=== PATIENT | female | born 1980 | race Caucasian/White ===

== ENCOUNTER 2017-12-08 10:02 | Inpatient (IN) | payer MEDICAID ==
[2017-12-08 12:28] LABS: ADD UMIC NO; UR ASCORBIC ACID NEGATIVE (NEGATIVE); UR BACTERIA FEW /HPF (NONE SEEN); UR BILIRUBIN (Dip) NEGATIVE (NEGATIVE); UR BLOOD (Dip) NEGATIVE (NEGATIVE); UR CLARITY SLIGHTLY CLOUDY (CLEAR); UR COLOR YELLOW (YELLOW); UR GLUCOSE (Dip) NEGATIVE (NEGATIVE); UR KETONES (Dip) NEGATIVE (NEGATIVE); UR LEUKOCYTE ESTERASE (Dip) NEGATIVE Leu/ul (NEGATIVE); UR MUCUS FEW /HPF (NONE SEEN); UR NITRITE (Dip) NEGATIVE (NEGATIVE); UR RBC 1 /HPF (0-5); UR SQUAMOUS EPITHELIAL CELL FEW /HPF (FEW); UR TOTAL PROTEIN (Dip) NEGATIVE (NEGATIVE); UR UROBILINOGEN (Dip) NEGATIVE (NEGATIVE); UR WBC 6 /HPF (0-5)
[2017-12-08] MEDS ORDERED: CARBOPROST 250 MCG INJ IM (13:30)
[2017-12-08] MEDS ORDERED: OXYTOCIN 30 UNITS/LR 500 ML IV (13:30)
[2017-12-08] MEDS ORDERED: LIDOCAINE 1% (MPF) 30 ML INJ INJ (13:30)
[2017-12-08] MEDS ORDERED: METHYLERGONOVINE 0.2 MG INJ IM (13:30)
[2017-12-08] MEDS ORDERED: MISOPROSTOL 200 MCG TAB PR (13:30)
[2017-12-08] MEDS ORDERED: BUTORPHANOL 1 MG INJ IV (13:30)
[2017-12-08 15:48] LABS: ADD MAN DIFF? NO
[2017-12-08 15:53] LABS: BASOPHILS % 0.5 % (0.0-2.0); EOSINOPHILS % 0.1 % (0.0-7.0); HEMOGLOBIN 12.1 g/dl (12.0-16.0); LYMPHOCYTES # 1.9 10^3/ul (0.8-2.9); LYMPHOCYTES % 24.1 % (15.0-51.0); MEAN CORPUSCULAR HEMOGLOBIN 31.3 pg (29.0-33.0); MEAN CORPUSCULAR HGB CONC 33.6 g/dl (32.0-37.0); MEAN CORPUSCULAR VOLUME 93.3 fl (82.0-101.0); MEAN PLATELET VOLUME 10.8 fl (7.4-10.4); MONOCYTE # 0.5 10^3/ul (0.3-0.9); MONOCYTES % 6.5 % (0.0-11.0); NEUTROPHIL # 5.3 10^3/ul (1.6-7.5); NEUTROPHILS % 68.3 % (39.0-77.0); PLATELET COUNT 147 10^3/UL (140-415); RED BLOOD COUNT 3.86 10^6/ul (4.20-5.40); RED CELL DISTRIBUTION WIDTH 13.7 % (11.5-14.5)
[2017-12-08 15:53] LABS: WHITE BLOOD COUNT 7.8 10^3/ul (4.8-10.8)
[2017-12-08] MEDS: LACTATED RINGER'S 1,000 ML IV* (16:02)
[2017-12-08 16:10] LABS: INR 0.93; PARTIAL THROMBOPLASTIN TIME 24.9 Sec (25.0-35.0); PROTIME 12.5 Sec (11.9-14.9)
[2017-12-08 16:37] LABS: HEPATITIS B SURFACE ANTIGEN NEGATIVE (NEGATIVE)
[2017-12-08] MEDS: AMPICILLIN 2 GM/NS (PMX) 100 ML IVPB (17:17)
[2017-12-08] MEDS: DINOPROSTONE 10 MG VAG SUPP VAG (18:42)
[2017-12-08 19:55] LABS: RAPID PLASMA REAGIN NONREACTIVE (NR)
[2017-12-08 21:19] LABS: ALANINE AMINOTRANSFERASE 17 IU/L (13-69); ALBUMIN 3.3 g/dl (3.3-4.9); ALBUMIN/GLOBULIN RATIO 1.03; ALKALINE PHOSPHATASE 178 IU/L (42-121); ANION GAP 11 (8-16); ASPARTATE AMINO TRANSFERASE 22 IU/L (15-46); BILIRUBIN,INDIRECT 0.1 mg/dl (0-1.1); BILIRUBIN,TOTAL 0.1 mg/dl (0.2-1.3); BLOOD UREA NITROGEN 9 mg/dl (7-20); CALCIUM 8.7 mg/dl (8.4-10.2); CARBON DIOXIDE 22 mmol/L (21-31); CHLORIDE 109 mmol/L (97-110); CREATININE 0.46 mg/dl (0.44-1.00); GLUCOSE 107 mg/dl (70-220); POTASSIUM 4.1 mmol/L (3.5-5.1); SODIUM 138 mmol/L (135-144); TOTAL PROTEIN 6.5 g/dl (6.1-8.1); URIC ACID 4.1 mg/dl (3.1-7.9)
[2017-12-08] MEDS: AMPICILLIN 1 GM/NS (PMX) 50 ML IVPB (21:24)
[2017-12-08] MEDS: BUTORPHANOL 2 MG INJ IV (22:42)
[2017-12-09] MEDS: AMPICILLIN 1 GM/NS (PMX) 50 ML IVPB ×4 (01:25→13:14)
[2017-12-09] MEDS: LACTATED RINGER'S 1,000 ML IV* ×4 (04:08→18:41)
[2017-12-09] MEDS ORDERED: FENTAnyl 2MCG/ML-ROPIV 0.2% 100 ML (04:50)
[2017-12-09] MEDS ORDERED: ONDANSETRON 4 MG INJ IV (05:00)
[2017-12-09] MEDS ORDERED: FENTAnyl 2MCG/ML-ROPIV 0.2% 100 ML BAG EPI (05:00)
[2017-12-09] MEDS ORDERED: DIPHENHYDRAMINE 50 MG INJ IV (05:00)
[2017-12-09] MEDS ORDERED: NALOXONE (0.4 MG/ML) INJ IV (05:00)
[2017-12-09] MEDS ORDERED: TERBUTALINE 1 MG/ML INJ SC (10:00)
[2017-12-09] MEDS: TERBUTALINE 1 MG/ML INJ SC (10:40)
[2017-12-09] MEDS: MINERAL OIL LIGHT 10 ML VIAL TOP (14:25)
[2017-12-09] MEDS: OXYTOCIN 30 UNITS/LR 500 ML IV ×2 (14:59→15:29)
[2017-12-09] MEDS: BUTORPHANOL 2 MG INJ IV (15:24)
[2017-12-09] MEDS ORDERED: METHYLERGONOVINE 0.2 MG INJ IM (18:00)
[2017-12-09] MEDS ORDERED: OXYTOCIN 30 UNITS/LR 500 ML IV (18:00)
[2017-12-09] MEDS ORDERED: ZOLPIDEM 5 MG TAB PO (18:00)
[2017-12-09] MEDS ORDERED: CARBOPROST 250 MCG INJ IM (18:00)
[2017-12-09] MEDS ORDERED: MISOPROSTOL 200 MCG TAB PR (18:00)
[2017-12-09] MEDS: IBUPROFEN 600 MG TAB PO ×2 (18:32→23:28)
[2017-12-09] MEDS: LANOLIN 7 GM TUBE TOP (18:32)
[2017-12-09] MEDS: WITCH HAZEL/GLYCERIN PAD PR (18:32)
[2017-12-09] MEDS: CEPHALEXIN 500 MG CAP PO ×2 (18:32→23:28)
[2017-12-09] MEDS: BENZOCAINE 20% 56 ML SPRAY TOP (18:33)
[2017-12-09] MEDS: DIBUCAINE 1% 30 GM OINT PR (19:46)
[2017-12-09] MEDS: MAGNESIUM HYDROXIDE 30ML CUP PO ×2 (21:00→21:16)
[2017-12-09] MEDS: SENNA/DOCUSATE NA (8.6MG/50MG) TAB PO ×2 (21:00→21:16)
[2017-12-10] MEDS: HYDROCODONE/APAP (5/325) TAB PO ×4 (01:04→21:48)
[2017-12-10] MEDS: LACTATED RINGER'S 1,000 ML IV* ×3 (03:44→23:38)
[2017-12-10] MEDS: IBUPROFEN 600 MG TAB PO ×3 (05:37→17:47)
[2017-12-10] MEDS: CEPHALEXIN 500 MG CAP PO ×3 (05:37→17:47)
[2017-12-10 08:03] LABS: ADD MAN DIFF? NO
[2017-12-10 08:06] LABS: WHITE BLOOD COUNT 16.2 10^3/ul (4.8-10.8)
[2017-12-10 08:06] LABS: BASOPHIL # 0.1 10^3/ul (0.0-0.1); BASOPHILS % 0.3 % (0.0-2.0); EOSINOPHILS % 0.2 % (0.0-7.0); HEMATOCRIT 33.4 % (37.0-47.0); HEMOGLOBIN 11.2 g/dl (12.0-16.0); LYMPHOCYTES # 2.7 10^3/ul (0.8-2.9); LYMPHOCYTES % 16.7 % (15.0-51.0); MEAN CORPUSCULAR HEMOGLOBIN 31.7 pg (29.0-33.0); MEAN CORPUSCULAR HGB CONC 33.5 g/dl (32.0-37.0); MEAN CORPUSCULAR VOLUME 94.6 fl (82.0-101.0); MEAN PLATELET VOLUME 10.4 fl (7.4-10.4); MONOCYTE # 0.9 10^3/ul (0.3-0.9); MONOCYTES % 5.7 % (0.0-11.0); NEUTROPHIL # 12.4 10^3/ul (1.6-7.5); NEUTROPHILS % 76.7 % (39.0-77.0); PLATELET COUNT 150 10^3/UL (140-415); RED BLOOD COUNT 3.53 10^6/ul (4.20-5.40); RED CELL DISTRIBUTION WIDTH 14.2 % (11.5-14.5)
[2017-12-10] MEDS: SENNA/DOCUSATE NA (8.6MG/50MG) TAB PO ×2 (08:14→21:13)
[2017-12-10] MEDS: MAGNESIUM HYDROXIDE 30ML CUP PO ×2 (08:14→21:13)
[2017-12-11] MEDS: IBUPROFEN 600 MG TAB PO ×4 (00:41→18:10)
[2017-12-11] MEDS: CEPHALEXIN 500 MG CAP PO ×4 (00:42→18:10)
[2017-12-11] MEDS: DIBUCAINE 1% 30 GM OINT PR (04:00)
[2017-12-11] MEDS: WITCH HAZEL/GLYCERIN PAD PR (04:00)
[2017-12-11] MEDS: BENZOCAINE 20% 56 ML SPRAY TOP (04:00)
[2017-12-11] MEDS: LANOLIN 7 GM TUBE TOP (05:50)
[2017-12-11] MEDS: LACTATED RINGER'S 1,000 ML IV* ×2 (06:19→09:35)
[2017-12-11] MEDS: HYDROCODONE/APAP (5/325) TAB PO (08:42)
[2017-12-11] MEDS: MAGNESIUM HYDROXIDE 30ML CUP PO (08:42)
[2017-12-11] MEDS: SENNA/DOCUSATE NA (8.6MG/50MG) TAB PO (08:42)
[2017-12-11] MEDS: VARICELLA VACCINE LIVE/PF 1,350 UNIT/0.5 ML ML SC* (09:00)
[2017-12-11] MEDS: MEASLES,MUMPS,RUBELLA VACCINE INJ SC* (09:00)
[2017-12-11] MEDS: DIPHTH/TET/ACEL PERTUSS (ADULT) 0.5 ML VIAL IM* (09:00)
[2017-12-11 09:45] LABS: ADD MAN DIFF? NO
[2017-12-11 09:56] LABS: BASOPHIL # 0.1 10^3/ul (0.0-0.1); BASOPHILS % 0.4 % (0.0-2.0); EOSINOPHILS # 0.1 10^3/ul (0.0-0.5); EOSINOPHILS % 0.8 % (0.0-7.0); HEMATOCRIT 31.9 % (37.0-47.0); HEMOGLOBIN 10.7 g/dl (12.0-16.0); LYMPHOCYTES # 2.7 10^3/ul (0.8-2.9); LYMPHOCYTES % 18.9 % (15.0-51.0); MEAN CORPUSCULAR HEMOGLOBIN 31.5 pg (29.0-33.0); MEAN CORPUSCULAR HGB CONC 33.5 g/dl (32.0-37.0); MEAN CORPUSCULAR VOLUME 93.8 fl (82.0-101.0); MEAN PLATELET VOLUME 10.5 fl (7.4-10.4); MONOCYTE # 0.8 10^3/ul (0.3-0.9); MONOCYTES % 5.5 % (0.0-11.0); NEUTROPHIL # 10.5 10^3/ul (1.6-7.5); NEUTROPHILS % 73.8 % (39.0-77.0); PLATELET COUNT 187 10^3/UL (140-415)
[2017-12-11 09:56] LABS: WHITE BLOOD COUNT 14.2 10^3/ul (4.8-10.8)
== END 2017-12-11 18:20 | disposition home or self-care (01) | DRG 775 ==
LOC: OBT 10:02 → L-D 12-09 04:21 → PP1 12-09 17:12 → OBT 13:00 → L-D 13:00
PROC: 3E0P7VZ Introduction of Hormone into Female Reproductive, Via Natural or Artificial Opening (ICD-10-PCS; 2017-12-08)
PROC: 10D07Z6 Extraction of Products of Conception, Vacuum, Via Natural or Artificial Opening (ICD-10-PCS; principal; 2017-12-09)
PROC: 0W8NXZZ Division of Female Perineum, External Approach (ICD-10-PCS; 2017-12-09)
DX: O76 Abnormality in fetal heart rate and rhythm complicating labor and delivery (principal); O48.0 Post-term pregnancy; Z3A.40 40 weeks gestation of pregnancy; Z37.0 Single live birth
CPT/HCPCS: 62319; 76815; 76818; 80053; 81001; 81003; 84560; 85025; 85610; 85730; 86592; 86850; 86900; 86901; 87086; 87340; 99464